=== PATIENT | male | born 1975 | race Caucasian/White ===

== ENCOUNTER 2016-09-09 20:21 | Emergency (ER) | payer SELFPAY ==
[~2016-09-09] VITALS: Ht 175.3 cm; Wt 90.7 kg
[2016-09-09 20:32] VITALS: BP_SYST 147
--- NOTE | 2016-09-09 20:32 | NUR ---
Patient to ER bed 08 to gown for evaluation. Side rails up.
[2016-09-09] MEDS ORDERED: NACL 0.9% 1,000 ML IV ONE (20:37)
--- NOTE | 2016-09-09 20:37 | NUR ---
Patient is brought in by . Patient reports that he has been having fever for 4 days with headache and chills. Pain 7/10, throbbing. Denies any chest pain, shortness of breath, or blurred vision. No other complaints/injuries per patient or as noted.
--- NOTE | 2016-09-09 20:38 | NUR ---
Dr. Rome at bedside
[2016-09-09] MEDS ORDERED: ACETAMINOPHEN 500 MG TABLET PO ONE (20:45)
[2016-09-09 21:07] LABS: CLARITY/URINE CLEAR (CLEAR); COLOR,URINE YELLOW (YELLOW); GLUCOSE,URINE NEGATIVE (NEGATIVE); KETONES,URINE 1+ (NEGATIVE); LEUKOCYTE ESTERASE ,URINE NEGATIVE (NEGATIVE); NITRITE, URINE NEGATIVE (NEGATIVE); PH,URINE 5.5 (5.0-8.0); PROTEIN URINE 2+ (NEGATIVE)
[2016-09-09 21:13] LABS: HEMATOCRIT 46.2 % (36-54); HEMOGLOBIN 14.8 g/dL (14.0-18.0); MEAN CORPUSCULAR HEMOGLOBIN 27 pg (27-31); MEAN CORPUSCULAR HGB CONC 32 % (32-36); MEAN CORPUSCULAR VOLUME 85 fL (79.0-98.0); PLATELET COUNT (AUTO) 225 K/uL (130-430); RED BLOOD CELL COUNT(AUTO) 5.46 MIL/uL (4.2-6.2); RED CELL DISTRIBUTION WIDTH 12.4 % (9.0-15.0)
[2016-09-09 21:15] LABS: BLOOD, URINE TRACE (NEGATIVE)
[2016-09-09 21:23] LABS: BILIRUBIN,URINE NEGATIVE (NEGATIVE)
[2016-09-09 21:23] LABS: PROTHROMBIN TIME 10.5 SECS (9.5-12.5)
[2016-09-09 21:25] LABS: CALCIUM 8.9 mg/dL (8.4-11.0); CREATININE 1.14 mg/dL (0.55-1.30); POTASSIUM 4.2 mmol/L (3.5-5.1)
[2016-09-09 21:29] LABS: ALBUMIN 3.9 g/dL (3.4-4.8); TOTAL BILIRUBIN 0.6 mg/dL (0.0-1.0); TOTAL PROTEIN, SERUM 8.7 g/dL (6.4-8.3)
[2016-09-09 21:37] LABS: BACTERIA,URINE MODERATE /HPF (None Seen); MUCUS,URINE 2+ /LPF (None Seen); RBC,URINE NONE SEEN /HPF (0-3)
[2016-09-09 21:49] LABS: ATYPICAL LYMPHOCYTES % 0 % (0-0); BAND % (MANUAL) 5 % (0-6); BASOPHILS % (MANUAL) 0 % (0-2); EOSINOPHILS % (MANUAL) 0 % (0-7); LYMPHOCYTES % (MANUAL) 20 % (20-46); MONOCYTES % (MANUAL) 8 % (0-11)
--- NOTE | 2016-09-09 23:31 | NUR ---
Patient given written and verbal discharge instructions and verbalizes understanding. ER MD discussed with patient the results and treatment provided. Patient in stable condition. ID arm band removed. IV catheter removed intact and dressing applied, no active bleeding. Rx of TYLENOL AND MOTRIN given. Patient educated on pain management and to follow up with PMD. Pain Scale 0/10. Opportunity for questions provided and answered.
[2016-09-09 23:33] VITALS: BP_SYST 125
--- NOTE | 2016-09-10 09:08 | NUR ---
RECEIVED DISCREPTANCY FROM RADIOLOGIST DR BRITT, DISCUSSED WITH DR PANCHAL AND PT TO BE CALLED. CALL PLACED TO PT AT GIVEN NUMBER AND MESSAGE LEFT. CALL PLACED TO PTS AT NUMBER GIVEN AND SPOKE WITH , SHE WILL BE BRINGING PT INTO [facility].
== END 2016-09-09 23:33 | disposition home or self-care (01) ==
LOC: SED 20:21
DX: R50.9 Fever, unspecified (principal); R51 Headache
CPT/HCPCS: 36415; 71010; 80053; 81000; 82150; 83690; 85007; 85027; 85610; 85730; 86635; 86710; 87086; 96360; 99285; J7030

== ENCOUNTER 2016-09-10 09:24 | Emergency (ER) | payer MEDICAID ==
[~2016-09-10] VITALS: Ht 175.3 cm; Wt 90.7 kg
[2016-09-10 09:24] VITALS: BP_SYST 173
--- NOTE | 2016-09-10 09:24 | NUR ---
BROUGHT BACK TO BED #8 AND TRIAGED. REPORT GIVEN TO OMAR
--- NOTE | 2016-09-10 09:57 | NUR ---
ER at bedside examining patient.
--- NOTE | 2016-09-10 09:57 | NUR ---
Pt returned to due to abnormal chest xray and follow up is needed. CT was ordered.
--- NOTE | 2016-09-10 10:20 | NUR ---
Pt went to CT in stable condition
[2016-09-10 10:29] LABS: HEMOGLOBIN 13.8 g/dL (14.0-18.0); MEAN CORPUSCULAR HEMOGLOBIN 27 pg (27-31); MEAN CORPUSCULAR HGB CONC 32 % (32-36); MEAN CORPUSCULAR VOLUME 84 fL (79.0-98.0); PLATELET COUNT (AUTO) 217 K/uL (130-430); RED BLOOD CELL COUNT(AUTO) 5.11 MIL/uL (4.2-6.2); RED CELL DISTRIBUTION WIDTH 12.6 % (9.0-15.0); WHITE BLOOD COUNT (AUTO) 6.3 K/uL (4.8-10.8)
[2016-09-10 10:31] LABS: CALCIUM 8.9 mg/dL (8.4-11.0); CREATININE 0.92 mg/dL (0.55-1.30); POTASSIUM 3.5 mmol/L (3.5-5.1)
[2016-09-10 10:39] LABS: ALBUMIN 3.4 g/dL (3.4-4.8); TOTAL BILIRUBIN 0.5 mg/dL (0.0-1.0); TOTAL PROTEIN, SERUM 7.8 g/dL (6.4-8.3)
--- NOTE | 2016-09-10 10:40 | NUR ---
Pt returned in stable condition, no complaints of pain.
[2016-09-10] MEDS ORDERED: cefTRIAXone 1 GM IVPB PREMIX 50 ML IV ONE (10:45)
[2016-09-10 10:57] LABS: ATYPICAL LYMPHOCYTES % 15 % (0-0); BAND % (MANUAL) 16 % (0-6); BASOPHILS % (MANUAL) 0 % (0-2); EOSINOPHILS % (MANUAL) 2 % (0-7); LYMPHOCYTES % (MANUAL) 15 % (20-46); MONOCYTES % (MANUAL) 9 % (0-11)
[2016-09-10 11:30] VITALS: BP_SYST 112
--- NOTE | 2016-09-10 11:30 | NUR ---
Patient given written and verbal discharge instructions and verbalizes understanding. ER MD discussed with patient the results and treatment provided. Patient in stable condition. ID arm band removed. IV catheter removed intact and dressing applied, no active bleeding. Rx of levaquin given. Patient educated on pain management and to follow up with PMD. Pain Scale 2. Opportunity for questions provided and answered.
== END 2016-09-10 11:30 | disposition home or self-care (01) ==
LOC: SED 09:24
DX: J18.1 Lobar pneumonia, unspecified organism (principal); R03.0 Elevated blood-pressure reading, without diagnosis of hypertension
CPT/HCPCS: 36415; 71250; 80053; 83605; 85007; 85027; 87040; 96365; 99285; J0696